=== PATIENT | female | born 1955 | race Caucasian/White ===

== ENCOUNTER 2021-05-31 06:08 | Inpatient (IN) | payer BC, MEDICAID ==
[2021-05-31] MEDS ORDERED: Acetaminophen 325 MG Tab PO PRN (09:06)
[2021-05-31] MEDS ORDERED: Ondansetron 4 MG/2 ML SDV IVPUSH PRN (09:06)
[2021-05-31] MEDS ORDERED: 50% Dextrose in Water 50 ML Syringe IVPUSH PRN (09:10)
[2021-05-31] MEDS ORDERED: Glucagon,Human Recombinant 1 MG Vial IM PRN (09:10)
--- NOTE | 2021-05-31 09:17 | PCM.SN.2 ---
- Free Text/Narrative Note: START OF DOCTOR EMAMIS HISTORY AND PHYSICAL / CONSULTATION NOTE Chief Complaint: Transfer from [facility] after being diagnosed with COVID-19 pneumonia History of Present Illness: The patient is a six 5-year-[age] female who transferred from [facility] after being diagnosed with COVID-19 pneumonia after presenting to the emergency department on May 30 2000.1. The patient Lorrie that she presented with a chief complaint of shortness of breath which started on May 14. Since that time it is progressively worsened and she is at present dyspnea on exertion. Since onset of symptoms she admits to fever, cough which is nonproductive dysgeusia, anosmia. She denies rigors, nausea, vomiting, wheeze, abdominal pain, diarrhea, myalgia, chest pain, headache. She currently rates her respiratory status as a 7 out of 10 at times her baseline level she is currently on supplemental oxygen. She presents for further evaluation Surgical History: Partial colectomy, tubal ligation, tonsillectomy Family History: Cancer, stroke, diabetes, coronary artery disease, hypertension, hyperlipidemia Social History: Tobacco: Never Alcohol: Denies Caffeine: Coffee Drugs: Presently none. In the past has used marijuana, acid Allergies: No known drug allergies Code Status: Full Pertinent Laboratory Results / Pertinent Radiology Results / Pertinent Diagnostic Results / Pertinent Vital Signs: Current set of vital signs pending. Most recent documented once: Blood pressure 149/52, pulse 86, respirations 20, pressure 98.3 degrees, 90% room air Physical Examination: General: -Alert -No acute distress -No dyspnea -No tachypnea -Obese Head: -Atraumatic -Normocephalic Eyes: -Pupils equally round and reactive to light and accommodation -Extraocular muscles intact Neurological: -Cranial nerves II-XII intact Neck: -No jugular venous distention -No thyromegaly -No cervical lymphadenopathy Heart: -Regular rate -Regular rhythm -No murmurs -No gallops -No rubs Lungs: -No wheeze -Minor bilateral rhonchi -No rales -Slightly diminished sounds bilaterally Abdomen: -Normal bowel sounds in all four quadrants -No rebound -No guarding -No tenderness Extremities: -2/4 pulse in all four extremities -No clubbing -No cyanosis -No edema -No calf tenderness present bilaterally -Negative Homans sign bilaterally Musculoskeletal: -5/5 bilateral upper extremity strength -5/5 bilateral lower extremity strength -Sensorium of bilateral upper extremities are equal and intact -Sensorium of bilateral lower extremities are equal and intact Additional Details / Additional Findings / Exceptions / Miscellaneous: Assessment / Plan: COVID-19 pneumonia. Remdesivir 100 g IV daily until 11:59 PM on June 04, 2021 + Proventil HFA: 90 mark as per spray: 2 puffs every 4 hours [id number] Solu-Medrol 40 mg IV every 8 hours. Incentive spirometer to be used 10 times hourly while awake. Will attempt to wean supplemental oxygen as tolerated Query COPD/emphysema. 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 Solu-Medrol 40 mg IV every 8 hours plus Proventil HFA: 90 mcg/spray: 2 puffs every 4 hours [id number] plus box-1 mg p.o. twice daily Hypokalemia. Will monitor potassium levels intermittently supplement as necessary Constipation. Senna plus: 2 tabs p.o. twice daily Urinary tract infection. Doxycycline 100 mg p.o. twice daily Arthritis Nephrolithiasis, cholelithiasis, thrombocytosis. Monitor platelet count intermittently Coronary artery disease Diabetes. Will check fingerstick glucose before every meal and at bedtime and provide insulin sign scale Obesity. Patient becomes regarding lifestyle modification 2.1 cm right adrenal nodule. Outpatient adrenal CT to be scheduled with her primary care physician or with a provider Myometrial mass. Outpatient pelvic ultrasound to be scheduled with her primary care physician or with a provider Thyroid nodules. Outpatient thyroid ultrasound to be scheduled with her primary care physician or with a provider. Check TSH, free T4 Medical noncompliance. Patient becomes regarding medical compliance GI prophylaxis. Protonix 40 mg p.o. daily DVT prophylaxis. Lovenox 40 mg subcutaneously every 12 hours Disposition: We will observe the patient for 24 to 48 hours and discharge once she consistently requires less than 5 L of supplemental oxygen to maintain pulse oximeter greater than 92% END OF DOCTOR EMAMIS HISTORY AND PHYSICAL / CONSULTATION NOTE
[2021-05-31 10:09] LABS: PTT,PARTIAL THROMBOPLSTIN TIME 26.4 SEC (22.0-34.0)
[2021-05-31 10:17] LABS: ANION GAP 25.4 mEq/L (7-13); CHLORIDE,CL 103 mmol/L (98-107); SODIUM,NA 140 mmol/L (136-145)
[2021-05-31] MEDS: Doxycycline Monohydrate 100 MG Cap PO SCH ×2 (10:19→21:09)
[2021-05-31] MEDS: methylPREDNISolone Sodium Succinate 40 MG/1 ML SDV IVPUSH SCH ×3 (10:19→21:12)
[2021-05-31] MEDS: Enoxaparin 40 MG/0.4 ML Syringe SUBCUT SCH ×2 (10:24→21:13)
[2021-05-31] MEDS: REMDESIVIR 100 MG in Sodium Chloride 0.9% 100 ML IV SCH (10:25)
[2021-05-31] MEDS: Albuterol 6.7 GM Inhaler INH SCH ×3 (10:26→18:00)
--- NOTE | 2021-05-31 10:42 | CR ---
PROCEDURE INFORMATION: Exam: XR Chest Exam date and time: 05/31/2021 10:02 AM Age: 65 years old Clinical indication: Other: Covid 19 TECHNIQUE: Imaging protocol: XR of the chest. Views: 1 view. COMPARISON: No relevant prior studies available. FINDINGS: Lungs: Multifocal advanced lung opacities compatible with Covid 19 pneumonitis. Pleural spaces: Unremarkable. No pleural effusion. No pneumothorax. Heart/Mediastinum: Unremarkable. No cardiomegaly. Bones/joints: Multilevel marginal thoracic spondylosis. IMPRESSION: Multifocal diffuse bilateral lung opacities compatible with Covid 19 pneumonitis
[2021-05-31] MEDS: Sodium Chloride 0.9% 10 ML Syringe FLUSH PRN ×2 (11:46→21:12)
[2021-05-31] MEDS: Potassium Chloride 10 MEQ Tab.ER PO SCH ×2 (11:47→13:16)
[2021-05-31] MEDS: Insulin Lispro 100 Units/ML 3 ML Vial SUBCUT SCH ×3 (11:48→21:30)
[2021-05-31] MEDS: Methimazole 5 MG Tab PO SCH ×2 (13:17→21:09)
[2021-05-31] MEDS: Glimepiride 2 MG Tab PO SCH (13:17)
[2021-05-31] MEDS: glipiZIDE 5 MG Tab PO SCH ×2 (13:17→21:07)
[2021-05-31] MEDS: Metoprolol Tartrate 25 MG Tab PO SCH ×2 (14:13→21:32)
[2021-05-31] MEDS: Lisinopril 20 MG Tab PO SCH (14:13)
--- NOTE | 2021-05-31 16:23 | US ---
EXAMINATION: Head Neck Soft Tissue Bi SEX: Female AGE: 65 years CLINICAL HISTORY: 65-year-old COVID positive (+) female with clinical hypothyroidism. Interpretation: Thyroid gland measurements: (Overall gland size and configuration within normal limits) 1. Right lobe of the thyroid gland measures 3.8 cm L x 1.4 cm W x 1.4 cm AP diameter. 2. Asymmetrically larger Left lobe of thyroid gland measures 4.5 cm L x 2.91 cm W x 2.5 cm AP diameter. Multi nodularity: 1. Largest echogenic solid but relatively avascular nodule, with some cavitation, is demonstrated lower pole left lobe of thyroid gland and measures 2.4 cm diameter. 2. Smaller 5 mm and 12 mm nodules located respectively anteriorly and posteriorly upper pole left lobe of the thyroid. 3. Tiny 3 x 4 mm cyst upper pole contralateral right lobe thyroid gland. 4. Discrete 8 x 9 mm diameter echogenic solid nodule lower pole right lobe of the thyroid gland. Normal thyroid isthmus. No cervical lymphadenopathy. CONCLUSION: Multinodular thyroid gland.
[2021-05-31] MEDS: metFORMIN 500 MG Tab PO SCH (17:08)
[2021-05-31] MEDS: atorvaSTATin 20 MG Tab PO SCH (21:09)
[2021-06-01] MEDS: Albuterol 6.7 GM Inhaler INH SCH ×7 (00:05→23:43)
[2021-06-01] MEDS: Methimazole 5 MG Tab PO SCH ×3 (06:11→22:05)
[2021-06-01] MEDS: methylPREDNISolone Sodium Succinate 40 MG/1 ML SDV IVPUSH SCH ×3 (06:12→22:05)
[2021-06-01] MEDS: Pantoprazole 40 MG Tab.CR PO SCH (06:12)
--- NOTE | 2021-06-01 07:22 | PCM.SN.2 ---
- Free Text/Narrative Note: START OF DOCTOR EVANS PROGRESS NOTE Subjective: The patient states that she is feeling better overall compared to my encounter with her on May 31, 2021. She still indicates that she is feeling constipated. She currently rates her respiratory status as an 8 out of 10 of 10 is her baseline. Overnight the patient complains of subjective fever however she denies rigors, nausea, vomiting, cough, wheeze, abdominal pain, chest pain, or any other constitutional complaints. I explained to the patient her current medical condition and plan of care and I have answered all of her questions Objective: General: -Alert -No acute distress -No dyspnea -No tachypnea Heart: -Regular rate -Regular rhythm -No murmurs -No gallops -No rubs Lungs: -No wheeze -No rhonchi -No rales -Distant breath sounds bilaterally Abdomen: -Normal bowel sounds in all four quadrants -No rebound -No guarding -No tenderness Extremities: -2/4 pulse in all four extremities -No clubbing -No cyanosis -No edema Additional Details / Additional Findings / Exceptions / Miscellaneous: Pertinent Laboratory Results / Pertinent Radiology Results / Pertinent Diagnostic Results / Pertinent Vital Signs: Patient saturating 94% on 5 L via nasal cannula Assessment / Plan: COVID-19 pneumonia. Remdesivir 100 g IV daily until 11:59 PM on June 04, 2021 + Proventil HFA: 90 mark as per spray: 2 puffs every 4 hours [id number] Solu-Medrol 40 mg IV every 8 hours. Incentive spirometer to be used 10 times hourly while awake. Will attempt to wean supplemental oxygen as tolerated Query COPD/emphysema. 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 Solu-Medrol 40 mg IV every 8 hours plus Proventil HFA: 90 mcg/spray: 2 puffs every 4 hours [id number] plus box-1 mg p.o. twice daily Hypokalemia. Will monitor potassium levels intermittently supplement as necessary Constipation. Senna plus: 2 tabs p.o. twice daily plus milk of magnesia 30 mL p.o. twice daily Urinary tract infection. Doxycycline 100 mg p.o. twice daily Thrombocytosis. We will monitor platelet count intermittently Hyperthyroidism. Thyroid ultrasound demonstrates multinodular thyroid gland. Currently pending: Thyroid-stimulating immunoglobulin, antithyroglobulin antibody, antithyroid peroxidase antibody. Tapazole 5 mg p.o. every 8 hours Hypertension. Lisinopril 20 mg p.o. daily plus metoprolol 25 mg p.o. twice daily Arthritis Nephrolithiasis, cholelithiasis, thrombocytosis. Monitor platelet count intermittently Coronary artery disease. Aspirin 81 mg p.o. daily plus Lipitor 40 mg p.o. nightly plus metoprolol 12.5 mg p.o. twice daily Diabetes. Will check fingerstick glucose before every meal and at bedtime and provide insulin sign scale plus Metformin 1000 mg p.o. twice daily plus Amaryl 4 mg p.o. daily plus glipizide 10 mg p.o. twice daily Obesity. Patient becomes regarding lifestyle modification 2.1 cm right adrenal nodule. Outpatient adrenal CT to be scheduled with her primary care physician or with a provider Myometrial mass. Outpatient pelvic ultrasound to be scheduled with her primary care physician or with a provider Thyroid nodules. Outpatient thyroid ultrasound to be scheduled with her primary care physician or with a provider. Check TSH, free T4 Medical noncompliance. Patient becomes regarding medical compliance GI prophylaxis. Protonix 40 mg p.o. daily DVT prophylaxis. Lovenox 40 mg subcutaneously every 12 hours Disposition: The patient will be in the hospital until June 03, 2021 when she completes her regimen of remdesivir and if she consistently requires less than 5 L of oxygen via nasal cannula LUZ ELENA OF DOCTOR KRUEGER PROGRESS NOTE
[2021-06-01] MEDS ORDERED: Bisacodyl 10 MG Supp RECTAL ONE (07:27)
[2021-06-01] MEDS: Insulin Lispro 100 Units/ML 3 ML Vial SUBCUT SCH ×4 (08:23→21:03)
[2021-06-01] MEDS: REMDESIVIR 100 MG in Sodium Chloride 0.9% 100 ML IV SCH (10:06)
[2021-06-01] MEDS: Magnesium Hydroxide 400 MG/5 ML Susp 30 ML Cup PO SCH ×2 (10:11→20:51)
[2021-06-01] MEDS: Aspirin 81 MG Tab.Chew PO SCH (10:11)
[2021-06-01] MEDS: metFORMIN 500 MG Tab PO SCH ×2 (10:12→18:39)
[2021-06-01] MEDS: glipiZIDE 5 MG Tab PO SCH ×2 (10:13→20:49)
[2021-06-01] MEDS: Glimepiride 2 MG Tab PO SCH (10:14)
[2021-06-01] MEDS: Lisinopril 20 MG Tab PO SCH (10:14)
[2021-06-01] MEDS: Metoprolol Tartrate 25 MG Tab PO SCH ×2 (10:15→20:48)
[2021-06-01] MEDS: Doxycycline Monohydrate 100 MG Cap PO SCH ×2 (10:15→20:49)
[2021-06-01] MEDS: Enoxaparin 40 MG/0.4 ML Syringe SUBCUT SCH ×2 (10:22→20:48)
[2021-06-01] MEDS ORDERED: Fluconazole 100 MG Tab PO ONE (11:07)
[2021-06-01] MEDS: atorvaSTATin 20 MG Tab PO SCH (20:48)
[2021-06-01] MEDS: Miconazole 2% Crm 14 GM Tube TOP SCH (20:50)
[2021-06-02] MEDS: Albuterol 6.7 GM Inhaler INH SCH ×5 (03:14→18:48)
[2021-06-02] MEDS: methylPREDNISolone Sodium Succinate 40 MG/1 ML SDV IVPUSH SCH ×3 (06:11→19:38)
[2021-06-02] MEDS: Methimazole 5 MG Tab PO SCH ×3 (06:11→21:19)
[2021-06-02] MEDS: Pantoprazole 40 MG Tab.CR PO SCH (06:11)
[2021-06-02 06:21] LABS: CHLORIDE,CL 98 mmol/L (98-107); SODIUM,NA 134 mmol/L (136-145)
--- NOTE | 2021-06-02 07:12 | PCM.SN.2 ---
- Free Text/Narrative Note: START OF DOCTOR EMAMIS PROGRESS NOTE Subjective: The patient currently rates her respiratory status is a 6 out of 10 at times her baseline. Overnight she denies fever, rigors, nausea, vomiting, cough, wheeze, abdominal pain, chest pain, or any other constitutional complaints. I explained to the patient her current medical condition and plan of care and have answered all of her questions Objective: General: -Alert -No acute distress -No dyspnea -No tachypnea Heart: -Regular rate -Regular rhythm -No murmurs -No gallops -No rubs Lungs: -No wheeze -No rhonchi -No rales -Distant breath sounds bilaterally Abdomen: -Normal bowel sounds in all four quadrants -No rebound -No guarding -No tenderness Extremities: -2/4 pulse in all four extremities -No clubbing -No cyanosis -No edema Additional Details / Additional Findings / Exceptions / Miscellaneous: Pertinent Laboratory Results / Pertinent Radiology Results / Pertinent Diagnostic Results / Pertinent Vital Signs: Patient saturating 94% on 3 L via nasal cannula Assessment / Plan: COVID-19 pneumonia. Remdesivir 100 g IV daily until 11:59 PM on June 04, 2021 + Proventil HFA: 90 mark as per spray: 2 puffs every 4 hours [id number] Solu-Medrol 40 mg IV every 8 hours. Incentive spirometer to be used 10 times hourly while awake. Will attempt to wean supplemental oxygen as tolerated Query COPD/emphysema. 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 Solu-Medrol 40 mg IV every 8 hours plus Proventil HFA: 90 mcg/spray: 2 puffs every 4 hours [id number] plus box-1 mg p.o. twice daily Hypokalemia. Will monitor potassium levels intermittently supplement as necessary Constipation. Senna plus: 2 tabs p.o. twice daily plus milk of magnesia 30 mL p.o. twice daily Urinary tract infection. Doxycycline 100 mg p.o. twice daily Thrombocytosis. We will monitor platelet count intermittently Hyperthyroidism. Thyroid ultrasound demonstrates multinodular thyroid gland. Currently pending: Thyroid-stimulating immunoglobulin, antithyroglobulin antibody, antithyroid peroxidase antibody. Tapazole 5 mg p.o. every 8 hours Hypertension. Lisinopril 20 mg p.o. daily plus metoprolol 25 mg p.o. twice daily Arthritis Nephrolithiasis, cholelithiasis, thrombocytosis. Monitor platelet count intermittently Coronary artery disease. Aspirin 81 mg p.o. daily plus Lipitor 40 mg p.o. nightly plus metoprolol 12.5 mg p.o. twice daily Diabetes. Will check fingerstick glucose before every meal and at bedtime and provide insulin sign scale plus Metformin 1000 mg p.o. twice daily plus Amaryl 4 mg p.o. daily plus glipizide 10 mg p.o. twice daily Obesity. Patient becomes regarding lifestyle modification 2.1 cm right adrenal nodule. Outpatient adrenal CT to be scheduled with her primary care physician or with a provider Myometrial mass. Outpatient pelvic ultrasound to be scheduled with her primary care physician or with a provider Thyroid nodules. Outpatient thyroid ultrasound to be scheduled with her primary care physician or with a provider. Check TSH, free T4 Medical noncompliance. Patient becomes regarding medical compliance GI prophylaxis. Protonix 40 mg p.o. daily DVT prophylaxis. Lovenox 40 mg subcutaneously every 12 hours Disposition: The patient will be in the hospital until June 03, 2021 when she completes her regimen of remdesivir or earlier if she consistently requires less than 5 L of oxygen via nasal cannula END OF DOCTOR EVANS PROGRESS NOTE
[2021-06-02] MEDS: Enoxaparin 40 MG/0.4 ML Syringe SUBCUT SCH ×2 (08:32→21:18)
[2021-06-02] MEDS: Magnesium Hydroxide 400 MG/5 ML Susp 30 ML Cup PO SCH ×2 (08:32→21:19)
[2021-06-02] MEDS: Insulin Lispro 100 Units/ML 3 ML Vial SUBCUT SCH ×4 (08:35→21:07)
[2021-06-02] MEDS: glipiZIDE 5 MG Tab PO SCH ×2 (08:42→20:38)
[2021-06-02] MEDS: metFORMIN 500 MG Tab PO SCH ×2 (08:43→17:30)
[2021-06-02] MEDS: Glimepiride 2 MG Tab PO SCH (08:44)
[2021-06-02] MEDS: Aspirin 81 MG Tab.Chew PO SCH (08:44)
[2021-06-02] MEDS: Doxycycline Monohydrate 100 MG Cap PO SCH ×2 (08:44→20:38)
[2021-06-02] MEDS: Lisinopril 20 MG Tab PO SCH (08:46)
[2021-06-02] MEDS: Metoprolol Tartrate 25 MG Tab PO SCH ×2 (08:47→20:39)
[2021-06-02] MEDS: REMDESIVIR 100 MG in Sodium Chloride 0.9% 100 ML IV SCH ×2 (08:55→10:28)
[2021-06-02] MEDS: Miconazole 2% Crm 14 GM Tube TOP SCH ×2 (10:26→21:18)
[2021-06-02] MEDS: Sodium Chloride 0.9% 10 ML Syringe FLUSH PRN (12:11)
[2021-06-02] MEDS: atorvaSTATin 20 MG Tab PO SCH (20:38)
[2021-06-03] MEDS: Albuterol 6.7 GM Inhaler INH SCH ×5 (03:45→14:06)
[2021-06-03] MEDS: methylPREDNISolone Sodium Succinate 40 MG/1 ML SDV IVPUSH SCH ×2 (03:50→11:25)
[2021-06-03] MEDS: Methimazole 5 MG Tab PO SCH ×2 (06:31→14:05)
[2021-06-03] MEDS: Pantoprazole 40 MG Tab.CR PO SCH (06:31)
--- NOTE | 2021-06-03 07:43 | PCM.SN.2 ---
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 Hypokalemia, resolved Constipation, resolved Urinary tract infection Thrombocytosis Hypothyroidism with thyroid ultrasound demonstrating multinodular thyroid gland with the following serum studies pending at the time of discharge: Thyroid- stimulating immunoglobulin, antithyroglobulin antibody, antithyroid peroxidase antibody Hypertension Arthritis Nephrolithiasis Cholelithiasis Coronary artery disease Diabetes Obesity 2.1 cm right adrenal nodule for which patient will need to schedule adrenal CT with her primary care physician or with a provider Myometrial mass for which patient will need to schedule pelvic ultrasound with her primary care physician or with a provider Medical noncompliance Consultations: None Condition on Discharge: Fair Disposition: The patient will be advised to follow-up with her primary care physician or provider 1 week post discharge. The patient indicates that she has a glucometer, test drips, and lancets. She is advised to keep a log of her blood sugar checking 4 times a day which consist of checking before each meal and at bedtime and documenting both the blood sugar number as well as the time checked. The patient will need to schedule adrenal CT with her primary care physician or provider for diagnosis of 2.1 cm right adrenal nodule. The patient will need to schedule pelvic ultrasound with her primary care physician or provider for diagnosis of myometrial mass The patient will require check of TSH and free T4 3 weeks post discharge for diagnosis of hyperthyroidism The patient is advised follow-up with endocrinology 1 month post discharge for diagnosis of hyperthyroidism Discharge Medications: Lipitor 20 mg p.o. twice daily Dexamethasone 4 mg p.o.: 1 1/2 tabs daily. Quantity 6. 0 refills Januvia 100 mg p.o. daily Miconazole 2% cream to be applied twice daily to affected area until 11:59 PM on June 10, 2021 Metoprolol 12.5 mg p.o. twice daily Methimazole 5 mg p.o. q. hours Metformin 1000 mg p.o. twice daily Lisinopril 20 mg p.o. daily Amaryl 4 mg p.o. daily Aspirin 81 mg p.o. daily Lipitor 40 mg p.o. nightly Doxycycline 100 mg p.o. twice daily. Quantity 6. 0 refills END OF DOCTOR EMAMIS DISCHARGE SUMMARY
[2021-06-03] MEDS: Enoxaparin 40 MG/0.4 ML Syringe SUBCUT SCH (08:35)
[2021-06-03] MEDS: Glimepiride 2 MG Tab PO SCH (08:35)
[2021-06-03] MEDS: Magnesium Hydroxide 400 MG/5 ML Susp 30 ML Cup PO SCH (08:35)
[2021-06-03] MEDS: glipiZIDE 5 MG Tab PO SCH (08:36)
[2021-06-03] MEDS: metFORMIN 500 MG Tab PO SCH ×2 (08:36→17:06)
[2021-06-03] MEDS: Doxycycline Monohydrate 100 MG Cap PO SCH (08:36)
[2021-06-03] MEDS: Lisinopril 20 MG Tab PO SCH (08:37)
[2021-06-03] MEDS: Metoprolol Tartrate 25 MG Tab PO SCH (08:37)
[2021-06-03] MEDS: Aspirin 81 MG Tab.Chew PO SCH (08:37)
[2021-06-03] MEDS: Insulin Lispro 100 Units/ML 3 ML Vial SUBCUT SCH ×3 (08:38→17:07)
[2021-06-03] MEDS: Miconazole 2% Crm 14 GM Tube TOP SCH (08:40)
[2021-06-03] MEDS: REMDESIVIR 100 MG in Sodium Chloride 0.9% 100 ML IV SCH (11:24)
== END 2021-06-03 18:36 | disposition home or self-care (01) | DRG 177 ==
LOC: DL.MS 08:40
PROVIDERS: ADMIT Internal Medicine; ATTEND Internal Medicine
PROC: XW033E5 Introduction of Remdesivir Anti-infective into Peripheral Vein, Percutaneous Approach, New Technology Group 5 (ICD-10-PCS; principal; 2021-05-31)
PROC: 8E0ZXY6 Isolation (ICD-10-PCS; principal; 2021-05-31)
DX: U07.1 COVID-19 (principal); J12.82 Pneumonia due to coronavirus disease 2019; N39.0 Urinary tract infection, site not specified; Z77.22 Contact with and (suspected) exposure to environmental tobacco smoke (acute) (chronic); E87.6 Hypokalemia; K59.00 Constipation, unspecified; D47.3 Essential (hemorrhagic) thrombocythemia; E03.9 Hypothyroidism, unspecified; I10 Essential (primary) hypertension; M19.90 Unspecified osteoarthritis, unspecified site; I25.10 Atherosclerotic heart disease of native coronary artery without angina pectoris; E11.9 Type 2 diabetes mellitus without complications; E66.9 Obesity, unspecified; E04.2 Nontoxic multinodular goiter; N85.9 Noninflammatory disorder of uterus, unspecified; E27.9 Disorder of adrenal gland, unspecified; Z79.82 Long term (current) use of aspirin; Z98.51 Tubal ligation status; Z87.442 Personal history of urinary calculi; Z91.19 Patient's noncompliance with other medical treatment and regimen; Z90.89 Acquired absence of other organs; Z98.890 Other specified postprocedural states; Z68.34 Body mass index [BMI] 34.0-34.9, adult
CPT/HCPCS: 36415; 71045; 76536; 80053; 82947; 83036; 83735; 84439; 84443; 84445; 85025; 85610; 85730; 86376; 86800; A9270-GY; J1650; J1815-GY; J2920